=== PATIENT | female | born 1995 | race Caucasian/White ===

== ENCOUNTER 2021-05-21 21:17 | Emergency (ER) | payer OTHER ==
[2021-05-22] MEDS ORDERED: NAPROSYN500 MG PO (03:28)
== END 2021-05-22 03:32 | disposition home or self-care (01) ==
LOC: ER1 21:17
DX: S99.911A Unspecified injury of right ankle, initial encounter (principal); F17.210 Nicotine dependence, cigarettes, uncomplicated; W22.8XXA Striking against or struck by other objects, initial encounter
CPT/HCPCS: 73610; 99283